=== PATIENT | female | born 1990 | race Caucasian/White ===

== ENCOUNTER 2017-11-25 16:10 | Emergency (ER) | payer BC ==
[~2017-11-25] VITALS: Ht 157.5 cm; Wt 73.5 kg
[2017-11-25 16:15] VITALS: BP 138/91
--- NOTE | 2017-11-25 16:19 | NUR ---
PATIENT AMBULATED TO BED 1 AT THIS TIME.
--- NOTE | 2017-11-25 16:37 | NUR ---
PATIENT PRESENTS TO ED WITH C/O CP RADIATING TO HER BACK X TODAY. PT STATES LT ARM FEELS NUMB.CP IS AGGRAVATED BY BREATHING DEEPLY; DENIES N/V/D; SKIN IS PINK/WARM/DRY; AAOX4 WITH EVEN AND STEADY GAIT; LUNGS CLEAR BL; HR EVEN AND REGULAR; PT DENIES ANY FEVER,SOB, OR COUGH AT THIS TIME; PATIENT STATES PAIN OF 5/10 AT THIS TIME; PATIENT POSITIONED FOR COMFORT; HOB ELEVATED; BEDRAILS UP X2; BED DOWN. ER MD MADE AWARE OF PT STATUS.
--- NOTE | 2017-11-25 16:53 | NUR ---
PTN DISCHARGED BY DR PEREA.
[2017-11-25 16:55] VITALS: BP 126/85
== END 2017-11-25 16:53 | disposition home or self-care (01) ==
LOC: MED 16:10
DX: M94.0 Chondrocostal junction syndrome [Tietze] (principal); J45.909 Unspecified asthma, uncomplicated; Z91.040 Latex allergy status
CPT/HCPCS: 93005; 99283